=== PATIENT | male | born 1980 | race Caucasian/White ===

== ENCOUNTER → 2022-08-19 | Outpatient (CLI) | payer BC ==
--- NOTE | 2022-08-19 21:27 | MR ---
EXAMINATION TYPE: MR lumbar spine wo/w con DATE OF EXAM: 08/19/2022 7:54 PM COMPARISON: NONE HISTORY: Low back pain into left leg CONTRAST: The patient was injected with 9.5 mL intravenous Gadavist gadolinium contrast. Multiplanar, MultiSpin echo imaging of the lumbar spine was performed. L1-L2: Normal disc appearance without desiccation. No herniation, protrusion or disc bulging. No ca nal stenosis is present. Foramina are patent bilaterally. L2-L3: Normal disc appearance without desiccation. No herniation, protrusion or disc bulging. No ca nal stenosis is present. Foramina are patent bilaterally. L3-L4: Normal disc appearance without desiccation. No herniation, protrusion or disc bulging. No ca nal stenosis is present. Foramina are patent bilaterally. L4-L5: Laminectomy changes noted. Intervertebral body spacer place. Postoperative alignment is within normal limits. Superior and inferior artifact seen. No recurrent central stenosis. Foramina are ortega nt. L5-S1: Laminectomy changes noted. Intervertebral body spacer place. Postoperative alignment is within normal limits. Superior and inferior artifact seen. No recurrent central stenosis. Foramina are ortega nt. Lumbar segments are intact. No paraspinal masses are identified. Conus medullaris has a normal appe arance. No pathologic enhancement. IMPRESSION: 1. Postoperative changes L4-5 and L5-S1 without recurrent disease. Alignment is within normal limits. No pathologic enhancement seen.
== END | disposition home or self-care (01) ==
LOC: RADMRIMAIN 18:21
PROVIDERS: ATTEND Neurological Surgery
DX: M54.16 Radiculopathy, lumbar region (principal); Z98.890 Other specified postprocedural states
CPT/HCPCS: 72158; A9585

== ENCOUNTER 2024-07-27 17:44 | Inpatient (IN) | payer BC, OTHER ==
--- NOTE | 2024-07-27 19:46 | ED ---
Back Pain HPI - General Chief Complaint: Back Pain/Injury Stated Complaint: Back pain Time Seen by Provider: 07/27/24 17:50 Source: patient, EMS Limitations: no limitations - History of Present Illness Initial Comments: 44-year-old male presents to the emergency department with back pain. States that he fell off of a garbage truck yesterday and landed flat on his back. He was having pain in his low back and went into [facility]. CT was performed which was negative. He was discharged home with pain medications. States that he woke up this morning in a puddle. Patient had urinary incontinence. States that he had a bowel movement yesterday but has not had 1 today. He reports to significant pain in the left lower extremity with weakness and numbness. No fevers. No history of drug use. No other alleviating, precipitating or modifying factors - Related Data Home Medications Medication Instructions Recorded Confirmed HYDROcodone/APAP 5-325MG [[place] 1 tab PO Q4HR PRN 07/28/24 07/28/24 5-325] Ibuprofen [Motrin] 800 mg PO Q8H PRN 07/28/24 07/28/24 Previous Rx's Medication Instructions Recorded Lidocaine 5% Patch [Lidoderm 5% 1 patch TOPICAL DAILY 30 Days #30 07/31/24 Patch] patch methylPREDNISolone Dose Pack 4 mg PO DIRECTED #21 tab 07/31/24 [Medrol Dose Pack] Allergies Allergy/AdvReac Type Severity Reaction Status Date / Time Penicillins Allergy Anaphylaxis Verified 07/28/24 09:44 Review of Systems ROS Statement: Those systems with pertinent positive or pertinent negative responses have been documented in the HPI. ROS Other: All systems not noted in ROS Statement are negative. Past Medical History Past Medical History: No Reported History History of Any Multi-Drug Resistant Organisms: None Reported Past Surgical History: No Surgical Hx Reported, Back Surgery Smoking Status: Current every day smoker Past Alcohol Use History: Occasional Past Drug Use History: None Reported General Exam Limitations: no limitations General appearance: alert, in no apparent distress Head exam: Present: atraumatic, normocephalic, normal inspection Eye exam: Present: normal appearance, PERRL, EOMI. Absent: scleral icterus, conjunctival injection, periorbital swelling ENT exam: Present: normal exam, mucous membranes moist Neck exam: Present: normal inspection. Absent: tenderness, meningismus, lymphadenopathy Respiratory exam: Present: normal lung sounds bilaterally. Absent: respiratory distress, wheezes, rales, rhonchi, stridor Cardiovascular Exam: Present: regular rate, normal rhythm, normal heart sounds. Absent: systolic murmur, diastolic murmur, rubs, gallop, clicks GI/Abdominal exam: Present: soft, normal bowel sounds. Absent: distended, tenderness, guarding, rebound, rigid Rectal exam: Present: normal rectal tone Extremities exam: Present: normal capillary refill, other (Patient reports to weakness in the left lower extremity. He gives very poor effort. Also states that he cannot feel sensation over the medial, lateral or dorsal lower extremity.). Absent: tenderness, pedal edema, joint swelling, calf tenderness Back exam: Present: normal inspection Neurological exam: Present: alert, oriented X3, CN II-XII intact Psychiatric exam: Present: normal affect, normal mood Skin exam: Present: warm, dry, intact, normal color. Absent: rash Course Vital Signs 07/27/24 07/27/24 07/27/24 17:46 19:53 22:21 Temperature 98.3 F Pulse Rate 60 62 74 Respiratory 18 16 16 Rate Blood Pressure 138/76 137/84 115/76 O2 Sat by Pulse 99 97 97 Oximetry 07/28/24 07/28/24 07/28/24 05:29 11:03 16:13 Temperature Pulse Rate 66 77 70 Respiratory 16 16 18 Rate Blood Pressure 124/87 137/90 123/73 O2 Sat by Pulse 95 97 96 Oximetry 07/28/24 17:25 Temperature 97.6 F Pulse Rate 73 Respiratory 18 Rate Blood Pressure 129/74 O2 Sat by Pulse 97 Oximetry Medical Decision Making - Medical Decision Making Was pt. sent in by a medical professional or institution (, PA, CHRONOMETER TESTER, urgent care, hospital, or alf...) When possible be specific @ -No Did you speak to anyone other than the patient for history (EMS, parent, family, police, friend...)? What history was obtained from this source @ -No Did you review nursing and triage notes (agree or disagree)? Why? @ -I reviewed and agree with nursing and triage notes Were old charts reviewed (outside hosp., previous admission, EMS record, old EKG, old radiological studies, urgent care reports/EKG's, alf records)? Report findings @ -Reviewed the CT from [facility] which demonstrated no acute process Differential Diagnosis (chest pain, altered mental status, abdominal pain women, abdominal pain men, vaginal bleeding, weakness, fever, dyspnea, syncope, headache, dizziness, GI bleed, back pain, seizure, CVA, palpatations, mental health, musculoskeletal)? @ -Differential Back Pain: Strain, zoster, cauda equina syndrome, epidural abscess, vertebral osteomyelitis, discitis, fracture, subluxation, disc herniation, DJD, spinal stenosis, dissection, AAA, pancreatitis, peptic ulcer disease, pyelonephritis, kidney stone, this is not meant to be an all-inclusive list. EKG interpreted by me (3pts min.). @ -Not done X-rays interpreted by me (1pt min.). @ -None done MRI interpreted by me (1pt min.). @ -yes which does not demonstrate any significant spinal cord compression U/S interpreted by me (1pt. min.). @ -None done What testing was considered but not performed or refused? (CT, X-rays, U/S, labs)? Why? @ -None What meds were considered but not given or refused? Why? @ -None Did you discuss the management of the patient with other professionals (professionals i.e. , PA, CHRONOMETER TESTER, lab, RT, psych nurse, social service agency director, criminal defense lawyer, teacher, medical information officer, special education case manager)? Give summary @ -Spoke with Dr. Lane who recommends steroids and will consult on the patient. spoke with dr lan Was smoking cessation discussed for >3mins.? @ -No Was critical care preformed (if so, how long)? @ -No Were there social determinants of health that impacted care today? How? (Homelessness, low income, unemployed, alcoholism, drug addiction, transportation, low edu. Level, literacy, decrease access to med. care, [facility], rehab)? @ -No Was there de-escalation of care discussed even if they declined (Discuss DNR or withdrawal of care, Hospice)? DNR status @ -No What co-morbidities impacted this encounter? (DM, HTN, Smoking, COPD, CAD, Cancer, CVA, ARF, Chemo, Hep., AIDS, mental health diagnosis, sleep apnea, morbid obesity)? @ -None Was patient admitted / discharged? Hospital course, mention meds given and route, prescriptions, significant lab abnormalities, going to OR and other pertinent info. @ -Upon arrival patient seen and evaluated in bed 11. Thorough history physical exam was performed. IV access was established. Patient is sent for MRI which demonstrates no acute spinal cord compression. Discussed the case with Dr. Lane. He recommends high-dose steroids. Patient will be admitted to medicine with orthopedic consult Undiagnosed new problem with uncertain prognosis? @ -No Drug Therapy requiring intensive monitoring for toxicity (Heparin, Nitro, Insulin, Cardizem)? @ -No Were any procedures done? @ -No Diagnosis/symptom? @ -Acute fall, acute low back pain, left leg weakness and paresthesias, urinary continence Acute, or Chronic, or Acute on Chronic? @ -Acute Uncomplicated (without systemic symptoms) or Complicated (systemic symptoms)? @ -Plicated Side effects of treatment? @ -No Exacerbation, Progression, or Severe Exacerbation? @ -No Poses a threat to life or bodily function? How? (Chest pain, [place], NH, pneumonia, PE, COPD, DKA, ARF, appy, cholecystitis, CVA, Diverticulitis, Homicidal, Suicidal, threat to staff... and all critical care pts) @ -Yes as patient reports to subjective findings of cauda equina - Lab Data Result diagrams: 07/31/24 03:32 07/31/24 03:32 Disposition Clinical Impression: Back pain, Fall, Left leg weakness Disposition[facility] Condition: Stable Is patient prescribed a controlled substance at d/c from ED?: No Time of Disposition: 20:58 Decision to Admit Reason: Admit from EC Decision Date: 07/27/24 Decision Time: 20:58
--- NOTE | 2024-07-27 19:49 | MR ---
EXAMINATION TYPE: MR lumbar spine wo con DATE OF EXAM: 07/27/2024 7:31 PM COMPARISON: 08/19/2022. CLINICAL INDICATION: Male, 44 years old with history of fall with back pain, urinary incontinence; PH H, Lt leg numbness, urinary incontinence, fall injury TECHNIQUE: Multi planar, multi sequence imaging was performed utilizing: T1-weighted, T2-weighted, a nd turbo inversion recovery imaging of the lumbar spine. IV Contrast: mL (None, if empty) FINDINGS: Alignment: The lumbar vertebral bodies have preserved heights and alignment. Cord: The conus medullaris and the distal spinal cord appear unremarkable with regards to their signa l intensity and morphology. Bones/Discs: Mild degeneration changes throughout the spine with osteophyte formation and facet joint arthropathy. Intervertebral disc signal is maintained. No abnormal inversion recovery signal to sugg est bony edema. T12-L1: No evidence of significant spinal canal stenosis or neural foraminal stenosis. L1-L2: No evidence of significant spinal canal stenosis or neural foraminal stenosis. L2-L3: No evidence of significant spinal canal stenosis or neural foraminal stenosis. L3-L4: No evidence of significant spinal canal stenosis. Facet joint arthropathy mild bilateral neura l foraminal stenosis. L4-L5: Discectomy at this level. No evidence of significant spinal canal stenosis. Facet joint arthro evan mild bilateral neural foraminal stenosis. L5-S1: Discectomy at this level. No evidence of significant spinal canal stenosis. Facet joint arthro evan mild bilateral neural foraminal stenosis. No significant spinal canal or neural foraminal stenosis in the remainder of the visualized levels. Other findings: None. IMPRESSION: No definitive evidence of disc herniation or significant spinal canal stenosis. No significant change since 08/19/2024 [facility], , 07/27/2024 7:46 PM
[2024-07-27] MEDS ORDERED: NALOXONE 0.4 MG/ML 1 ML VIAL IV PRN ×2 (20:58→21:11)
[2024-07-27] MEDS: DEXAMETHASONE SOD PHOSPHATE 10 MG/ML 1 ML VIAL IVP STA (21:21)
[2024-07-27] MEDS: SODIUM CHLORIDE 0.9% 1,000 ML IV SCH (21:22)
[2024-07-27 21:24] LABS: Basophils # (A) 0.03 10*3/uL (0.00-0.10); Basophils % (A) 0.6 %; Eosinophils # (A) 0.12 10*3/uL (0.04-0.35); Eosinophils % (A) 2.2 %; HCT 43.1 % (39.6-50.0); HGB 15.5 g/dL (13.0-17.0); Lymphocytes # (A) 1.59 10*3/uL (0.90-5.00); Lymphocytes % (A) 29.4 %; MCH 30.3 pg (27.0-32.0); MCV 84.2 fL (80.0-97.0); Mean Platelet Volume 9.3 fL (9.5-12.2); Monocytes # (A) 0.46 10*3/uL (0.20-1.00); Monocytes % (A) 8.5 %; Neutrophils # (A) 3.18 10*3/uL (1.80-7.70); Neutrophils % (A) 58.9 %; Platelet Count 212 10*3/uL (140-440); RBC 5.12 10*6/uL (4.40-5.60); RDW 12.8 % (11.5-14.5)
--- NOTE | 2024-07-27 21:36 | P.HPIM ---
History of Present Illness H&P Date: 07/27/24 Chief Complaint: back pain This is a 44-year-old male patient with no significant past medical history who presented to the ER complaining of back pain. Patient reported that he fell off a garbage truck yesterday and he landed flat on his back. Patient reported that he was complaining of severe pain and he had to go to the hospital at [place]. CT scan was done and it was not remarkable. Patient was discharged with pain medication. However, this morning he woke up with a puddle of urine where he reported urine incontinence. He did had a normal bowel movement yesterday but none today. He reports significant pain and numbness to the left lower extremity. Case was discussed with Dr. Lane who recommended MRI which was done and it was not remarkable . Physical exam per ED physician was not remarkable as well and there were no red flags . Dr. Lane recommended dexamethasone 4 mg every 6 hours and will evaluate patient tomorrow. Patient admitted as an observation. Labs are not remarked Past medical history : None Past surgical history: None Social history : Daily tobacco use of 1 pack/day, occasional alcohol use and no illicit drug use Review of system : Positive for back pain General: nontoxic, no distress, appears at stated age Derm: warm, dry, intact Head: atraumatic, normocephalic, symmetric Eyes: EOMI, anicteric sclera Mouth: no lip lesion, mucus membranes moist Cardiovascular: S1 S2 reg, no murmur, rubs, or gallops Lungs: CTA bilateral, no rales, no accessory muscle use Abdominal: soft, non-tender to palpataion, no appreciable organomegaly Extremities: no gross muscle atrophy, no edema, no contractures Neuro: Alert, Oriented, CNII-XII grossly intact, Normal strength and sensation to the lower extremity . Rectal exam was not performed by me but was done by ED physician and was normal Psych: well appearing, appropriate affect Assessment and plan : - Status post mechanical fall with back pain and left leg numbness : Spine MRI was not remarkable Continue with IV dexamethasone was consulted and will evaluate patient tomorrow a.m. Pain management Fall precaution CODE STATUS is full code VTE prophylaxis on Lovenox subcu Will consult physical therapy Admitted under observation Time spent : 55 min Past Medical History Past Medical History: No Reported History History of Any Multi-Drug Resistant Organisms: None Reported Past Surgical History: No Surgical Hx Reported, Back Surgery Smoking Status: Current every day smoker Past Alcohol Use History: Occasional Past Drug Use History: None Reported Medications and Allergies Allergies Allergy/AdvReac Type Severity Reaction Status Date / Time Penicillins Allergy Anaphylaxis Verified 07/27/24 21:09 Physical Exam Vitals: Vital Signs Temp Pulse Resp BP Pulse Ox 07/27/24 19:53 62 16 137/84 97 07/27/24 17:46 98.3 F 60 18 138/76 99 Intake and Output 07/27/24 07/27/24 07/27/24 06:59 14:59 22:59 Other: Weight 106.594 kg
[2024-07-27 21:39] LABS: African American GFR (CKD) >90 (>60 ml/min/1.73 sqM); Anion Gap 8 mmol/L; Blood Urea Nitrogen 19 mg/dL (9-20); Calcium 8.9 mg/dL (8.4-10.2); Carbon Dioxide 26 mmol/L (22-30); Chloride 101 mmol/L (98-107); Glucose 94 mg/dL (74-99); Non-African American GFR(CKD) >90 (>60 ml/min/1.73 sqM); Potassium 3.5 mmol/L (3.5-5.1); Sodium 135 mmol/L (137-145)
[2024-07-27] MEDS: HYDROcodone/APAP 5-325MG 1 EACH TAB PO PRN (22:22)
[2024-07-27] MEDS: DEXAMETHASONE SOD PHOSPHATE 4 MG/ML 1 ML VIAL IVP SCH (23:31)
[2024-07-28] MEDS: ENOXAPARIN 40 MG/0.4 ML SYRINGE SQ SCH (08:34)
--- NOTE | 2024-07-28 12:47 | P.PN ---
Subjective Progress Note Date: 07/28/24 Hospital course: Patient is a 44-year-old male with a past medical history of nicotine dependence and recent fall resulting in severe lower back pain, left lower extremity weakness/paralysis, and urinary incontinence. 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 Patient reports initially was able to get back up and ambulate through the pain, he states he was seen at [facility] at time of injury and underwent a CT scan on his back which was negative. Patient reported this pain progressively worsened accompanied by the development of left lower extremity weakness and lastly urinary incontinence provoking him to return to the emergency department for further evaluation. Upon arrival to our facility, patient underwent evaluation in the emergency department. Vital signs upon arrival show blood pressure 138/76, heart rate 60, respiratory rate 18, temp 98.3 F, and SpO2 of 99% on room air. MRI Lumbar spine completed showing no definitive evidence of disc herniation or significant spinal cord stenosis stating no significant changes since MRI completed 08/19/2022. Patient was started on IV Decadron and admitted under services with consultation to orthospine surgery team. Physical exam: Patient seen and fully evaluated at the bedside. He reports having another episode of urinary incontinence this morning and continued left lower extremity weakness/paralysis. Sensation remains intact, but states diminished in left lower extremity. Patient reports pain remains to mid lower back and remains tender upon palpation. He denies having any involuntary loss of bowel. Vital signs reviewed and stable. General: Nontoxic, no distress and appears stated age. Derm: Skin warm and dry, normal coloration for ethnicity. Head: Atraumatic, normocephalic and symmetric. Eyes: EOM's intact, no lid lag, and anicteric sclera Mouth: no lip lesions, mucus membranes moist Cardiovascular: regular rate and rhythm with normal S1S2, no murmur, positive posterior tibial pulses bilaterally, and cap refill < 2 seconds. Lungs: Respirations even, regular, and unlabored on room air. Lungs CTA bilaterally, no rhonchi, no rales, no wheezing, and no accessory muscle usage. Abdominal: soft, nontender to palpation, no guarding, no appreciable orga nomegaly Ext: No gross muscle atrophy, no edema, no contractures Neuro: Speech clear, face symmetrical and CN II-XII grossly intact with no noted focal neuro deficits. Movement and sensation equal, strong, and intact in bilateral upper extremities. Sensation in bilateral lower extremities intact r eports diminished to left lower extremity, left lower extremity with significant weakness/near paralysis. Patient was able to perform only minimal plantarflexion with left foot, but unable to dorsiflex and no other movement in left lower extremity. Psych: Alert and oriented to person, place, time, and situation. Appropriate and pleasant affect. Assessment and Plan of Care: Acute lumbar back pain accompanied by left lower extremity weakness/paralysis and urinary incontinence Traumatic fall from garbage truck -MRI Lumbar spine completed showing no definitive evidence of disc herniation or significant spinal cord stenosis stating no significant changes since MRI completed 08/19/2022. -Continue IV Decadron 4 mg every 6 hours. -Orthospine surgery team following, discussed MRI results with orthospine surgeon and orthopedic PA. Will further evaluate and possibly place order for MRI thoracic spine pending their assessment findings. -Symptomatic care and pain management milligrams every 6 hours as needed for mild pain, [place] 5/325 mg tablets every 4 hours as needed for moderate pain, and morphine 4 mg IVP every 4 hours as needed for severe breakthrough pain. -Neurochecks every 4 hours. -Maintain fall precautions.. -Consult placed to physical therapy. Data and imaging reviewed: MRI Lumbar spine completed showing no definitive evidence of disc herniation or significant spinal cord stenosis stating no significant changes since MRI completed 08/19/2022. Vital signs reviewed. Blood pressure 124/87, heart rate 66, respiratory rate 16, and SpO2 of 95% on room air. CODE STATUS: Full code DVT prophylaxis: Lovenox Discussed with: Patient, RN, orthopedic surgeon, and orthopedic surgery PA Anticipated discharge date: Pending clinical course Anticipated discharge place: Home Patient was seen independently by Nurse Pracitioner. This document was prepared using [employer] dictation software. Please allow for errors in field auditor, while rare they do occur. Erick Fowler NP rendered care for this patient independently, reviewed the findings and plan as documented in the note above and agree with plan. I did not physically speak with or examine the patient on this date. Objective - Vital Signs Vital signs: Vital Signs Temp 98.3 F 07/27/24 17:46 Pulse 77 07/28/24 11:03 Resp 16 07/28/24 11:03 BP 137/90 07/28/24 11:03 Pulse Ox 97 07/28/24 11:03 FiO2 Intake & Output 07/27/24 07/28/24 07/28/24 18:59 06:59 18:59 Weight 106.594 kg - Labs CBC & Chem 7: 07/27/24 21:16 07/27/24 21:16 Labs: Abnormal Lab Results - Last 24 Hours (Table) 07/27/24 07/27/24 Range/Units 21:16 21:16 MPV 9.3 L (9.5-12.2) fL Sodium 135 L (137-145) mmol/L
[2024-07-28] MEDS: traMADol 50 MG TAB PO PRN (13:41)
--- NOTE | 2024-07-28 14:24 | P.CNOR ---
History of Present Illness - [facility] Consult date: 07/28/24 Consult reason: back pain (Left lower extremity paralysis/weakness, urinary incontinence) History of present illness: Patient is a 44-year-old male who presented to [facility] yesterday for evaluation of severe left lower extremity weakness, mid/low back pain and urinary incontinence. Apparently on 07/26/2024 he fell off a garbage truck landing on his back. Patient was able to struggle through most of the day, the following day he had developed significant weakness in his extremity, he also woke up and noticed he had urinated himself and not been able to tell that he did that. This prompted him to report to the hospital for further evaluation. An MRI of the lumbar spine was done upon arrival, there were no space-occupying lesions, there is no significant spinal cord compression noted. Patient does have history of a previous lumbar surgery that was done about 14 years ago by a neurosurgeon at [facility]. Patient evaluated at bedside, and family members present in the ER. Patient is in quite a bit of discomfort in the mid thoracic down through the lumbar spine, he admits to shooting pain that goes down the leg with movement of that left lower extremity that ranges up into his back. Patient notes significant numbness and tingling to that left lower extremity. He essentially has no motion in that extremity at this time. He denies any right lower extremity symptoms at this time. He denies any upper extremity symptoms at this time. He denies any headaches, fever or chills. He does admit to some genital numbness and perineal numbness. He denies any loss of bowel function. Review of Systems Constitutional: Reports as per [facility] Past Medical History Past Medical History: No Reported History History of Any Multi-Drug Resistant Organisms: None Reported Past Surgical History: No Surgical Hx Reported, Back Surgery Smoking Status: Current every day smoker Past Alcohol Use History: Occasional Past Drug Use History: None Reported Medications and Allergies Home Medications Medication Instructions Recorded Confirmed Type HYDROcodone/APAP 5-325MG [[place] 1 tab PO Q4HR PRN 07/28/24 07/28/24 History 5-325] Ibuprofen [Motrin] 800 mg PO Q8H PRN 07/28/24 07/28/24 History Allergies Allergy/AdvReac Type Severity Reaction Status Date / Time Penicillins Allergy Anaphylaxis Verified 07/28/24 09:44 Physical Examination Gen: AOx3, NAD VSS stable at this time Integument: No open lesions or sores are visualized throughout the cervical, thoracic or lumbar spine. There is well-healed incision in the lower lumbar spine from previous lumbar surgery Palpation: Tenderness to palpation noted in the paraspinal region of the mid to low thoracic along with lumbar spine ROM: Full range of motion all major muscle groups of the bilateral upper extremities, no focal deficits are appreciated Right lower extremity demonstrates adequate range of motion all major muscle groups Left lower extremity patient does not move it he states he tries any cannot move it at all Sensory Exam: Senory exam to light touch is intact C5-T1 Senosry exam to light touch is intact L2-S1, sensory exam to light touch demonstrates deficits throughout the left lower extremity Motor: 5/5 strength appreciated in bilateral upper extremities with shoulder elevation, shoulder abduction, elbow extension, elbow flexion, wrist extension, wrist flexion, attorney 4/5 strength appreciated in the right lower extremity with hip flexion, knee extension, knee flexion, plantarflexion, dorsiflexion, EHL, FHL Reflexes: Negative Jose's bilaterally Negative clonus bilaterally Special Test: Negative straight leg raise right lower extremity Positive straight leg raise left lower extremity Results - Labs Labs: Abnormal Lab Results - Last 24 Hours (Table) 07/27/24 07/27/24 Range/Units 21:16 21:16 MPV 9.3 L (9.5-12.2) fL Sodium 135 L (137-145) mmol/L H & H 07/27/24 Range/Units 21:16 Hgb 15.5 (13.0-17.0) g/dL Hct 43.1 (39.6-50.0) % Result Diagrams: 07/27/24 21:16 07/27/24 21:16 Assessment and Plan Assessment: Mid thoracic/low back pain Left lower extremity paralysis/paresthesias/weakness Urinary incontinence History of previous lumbar surgery Status post fall from truck Plan: I was able to discuss the case, this included physical exam findings and current imaging studies with my attending surgeon. MRI of the lumbar spine demonstrated no space-occupying lesions or significant areas of spinal stenosis in the lumbar region Stat MRI of the thoracic spine without contrast has been ordered for further evaluation Pain control, continue current medications DVT prophylaxis per primary medical service Continue IV Decadron Further recommendations to follow Time with Patient: Less than 30
[2024-07-28] MEDS ORDERED: ACETAMINOPHEN TAB 325 MG TAB PO PRN (16:02)
--- NOTE | 2024-07-28 19:29 | MR ---
EXAMINATION TYPE: MR thoracic spine wo con DATE OF EXAM: 07/28/2024 6:28 PM COMPARISON: None. CLINICAL INDICATION: Male, 44 years old with history of urinary incontinence, left leg paralysis, uri nary incontinence, left leg paralysis. TECHNIQUE: Multiplanar, multiecho imaging on a 3.0 Fabiana magnet is performed through the thoracic spi ne. IV Contrast: mL (None, if empty) FINDINGS: Spinal cord maintains normal signal through its visualized course. Vertebral body alignment is normal. Vertebral body heights are preserved. Disc heights are preserved. Disc hydration levels are preserved. T2-3: Mild right paracentral disc bulge has mild anterior thecal sac compression. No cord contact 7. No spinal canal stenosis. T5-6: Moderate left paracentral disc bulge has anterior thecal sac contact. Cord contact may be prese nt. Mild cord flattening may be present. No AP spinal canal stenosis. T6-7: Moderate disc bulge and moderate anterior thecal sac compression and cord contact. No spinal ca nal stenosis. T7-8: Left paracentral to left lateral disc bulge is present with moderate anterior thecal sac compre ssion. Cord contact may be present. No spinal canal stenosis. T8-9: There is a left paracentral disc bulge moderate anterior lateral thecal sac compression. Some c ord contact appears to be present. No AP spinal canal stenosis evident. Neural foramen are patent. IMPRESSION: 1. Left paracentral to left lateral anterior thecal sac compression at T5-6 through T8-9 from disc bu lging and/or osteophyte formation. Some cord contact is present at these levels without spinal canal stenosis. Mild cord flattening may be present at T5-6. 2. Mild right paracentral disc bulge has mild anterior thecal sac compression at T2-3. [facility], , 07/28/2024 7:26 PM
[2024-07-28] MEDS: MORPHINE SULFATE 4 MG/ML SYRINGE IV PRN (21:54)
--- NOTE | 2024-07-29 12:28 | P.PN ---
Subjective Progress Note Date: 07/29/24 Principal diagnosis: Left lower extremity weakness/paralysis, urinary incontinence Patient is evaluated today at bedside, he had multiple family members present. Patient has undergone both the thoracic and lumbar MRI that showed no significant central spinal canal stenosis. There were some disc herniations noted in the thoracic area between T6-T9. Patient also underwent a b rain/cervical MRI today, the report was not available at this time. The images as they are. Also demonstrated no acute central canal stenosis. Neurology did add the MRI of the brain, awaiting further input. Patient continues to have no function of his left lower extremity and his head 2 further episodes of urinary incontinence. Discussed with the patient today at bedside of placing a urinary catheter. Denies any headaches, lightheadedness, chest pain, shortness of breath, left upper extremity or right lower extremity symptoms. Objective - Vital Signs Vital signs: Vital Signs Temp 97.7 F 07/29/24 07:23 Pulse 57 L 07/29/24 07:23 Resp 16 07/29/24 07:23 BP 121/67 07/29/24 07:23 Pulse Ox 97 07/29/24 07:23 FiO2 Intake & Output 07/28/24 07/29/24 07/29/24 18:59 06:59 18:59 Weight 106.594 kg Other: Voiding Method Incontinent # Voids 5 1 - Exam Gen: AOx3, NAD VSS stable at this time Integument: No open lesions or sores are visualized throughout the cervical, thoracic or lumbar spine. There is well-healed incision in the lower lumbar spine from previous lumbar surgery Palpation: Tenderness to palpation noted in the paraspinal region of the mid to low thoracic along with lumbar spine ROM: Full range of motion all major muscle groups of the bilateral upper extremities, no focal deficits are appreciated Right lower extremity demonstrates adequate range of motion all major muscle groups Left lower extremity patient does not move it he states he tries any cannot move it at all Sensory Exam: Senory exam to light touch is intact C5-T1 Senosry exam to light touch is intact L2-S1, sensory exam to light touch demonstrates deficits throughout the left lower extremity Motor: 5/5 strength appreciated in bilateral upper extremities with shoulder elevation, shoulder abduction, elbow extension, elbow flexion, wrist extension, wrist flexion, software engineering specialist 4/5 strength appreciated in the right lower extremity with hip flexion, knee extension, knee flexion, plantarflexion, dorsiflexion, EHL, FHL Reflexes: Negative Jose's bilaterally Negative clonus bilaterally Special Test: Negative straight leg raise right lower extremity Positive straight leg raise left lower extremity - Labs CBC & Chem 7: 07/27/24 21:16 07/27/24 21:16 Assessment and Plan Assessment: Mid thoracic/low back pain Left lower extremity paralysis/paresthesias/weakness Urinary incontinence History of previous lumbar surgery Status post fall from truck Plan: Await brain/cervical MRI reports Will review MRIs again with my attending surgeon 30 mg IV Decadron stat, followed by an increase in the 4 mg every 4 hours Urinary catheter placement Pain control, continue current medications DVT prophylaxis per primary medical service Other medical specialty recommendations appreciated Further recommendations to follow Time with Patient: Less than 30
--- NOTE | 2024-07-29 13:26 | MR ---
EXAMINATION TYPE: MR brain/cspine wo/w DATE OF EXAM: 07/29/2024 12:06 PM COMPARISON: None. CLINICAL INDICATION: Male, 44 years old with history of LLE paralysis, invol loss of bladder, back pa in, LLE parasthesis, urinary incontinence TECHNIQUE: Multiplanar, multiecho imaging on a 3.0 Fabiana magnet is performed through the brain. Stud y is performed within 24 hours of arrival to the hospital.Multiplanar, multiecho imaging on a 3.0 Jule[place] la magnet is performed through the brain. IV Contrast: 10.5 mL Gadobutrol (None, if empty) FINDINGS: The craniovertebral junction is normal. The pituitary is normal. Optic chiasm as visualized appears normal Diffusion-weighted imaging is performed. No abnormal hyperintensity is present to suggest an acute i ntracranial infarct or acute ischemic change. There are scattered punctate areas of hyperintensity on T2 and Inversion Recovery weighted sequences which are non-specific but can be related to microvascular ischemic changes. Ventricles and sulci are appropriate for the patient age. IMPRESSION: 1. No acute intracranial process. Follow-up be performed as clinically indicated. EXAMINATION TYPE: MR brain/cspine wo/w DATE OF EXAM: 07/29/2024 12:06 PM COMPARISON: None. CLINICAL INDICATION: Male, 44 years old with history of LLE paralysis, invol loss of bladder, back pa in, LLE parasthesis, urinary incontinence TECHNIQUE: Multiplanar multiecho imaging on a 3.0 Fabiana magnet is performed through the cervical spin e. IV Contrast: 10.5 mL Gadobutrol (None, if empty) FINDINGS: The craniovertebral junction is normal. Vertebral body alignment is normal. C7-T1: No focal disc herniation or significant disc bulge is evident. No spinal canal stenosis or n eural foraminal stenosis is present. C6-7: No focal disc herniation or significant disc bulge is evident. No spinal canal stenosis or pattie ral foraminal stenosis is present. C5-6: No focal disc herniation or significant disc bulge is evident. No spinal canal stenosis or pattie ral foraminal stenosis is present. C4-5: No focal disc herniation or significant disc bulge is evident. No spinal canal stenosis or pattie ral foraminal stenosis is present. C3-4: There is a moderate-sized central protrusion. Cord contact appears to be present. No cord defor mity is evident. C2-3: No focal disc herniation or significant disc bulge is evident. No spinal canal stenosis or pattie ral foraminal stenosis is present. Cord signal appears normal. Vertebral body heights are preserved. Disc heights are preserved. Disc hy dration appears normal. IMPRESSION: 1. Small central disc protrusion C3-4 has moderate anterior thecal sac compression and mass and cord contact without cord deformity. [facility], , 07/29/2024 1:24 PM
--- NOTE | 2024-07-29 13:27 | P.PN ---
Subjective Progress Note Date: 07/29/24 Hospital course: Patient is a 44-year-old male with a past medical history of nicotine dependence and recent fall resulting in severe lower back pain, left lower extremity weakness/paralysis, and urinary incontinence. 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 Patient reports initially was able to get back up and ambulate through the pain, he states he was seen at [facility] at time of injury and underwent a CT scan on his back which was negative. Patient reported this pain progressively worsened accompanied by the development of left lower extremity weakness and lastly urinary incontinence provoking him to return to the emergency department for further evaluation. Upon arrival to our facility, patient underwent evaluation in the emergency department. Vital signs upon arrival show blood pressure 138/76, heart rate 60, respiratory rate 18, temp 98.3 F, and SpO2 of 99% on room air. MRI Lumbar spine completed showing no definitive evidence of disc herniation or significant spinal cord stenosis stating no significant changes since MRI completed 08/19/2022. Patient was started on IV Decadron and admitted under services with consultation to orthospine surgery team. MRI thoracic spine completed showing left paracentral to left lateral anterior thecal sac compression at T5-T6 through T8-T9 with disc bulging and/or osteophyte formation, some cord contact is present at these levels without spinal canal stenosis and mild cord flat tening may be present at C5-6 with mild right paracentral disc bulge that has mild anterior thecal sac compression at T2-T3. Physical exam: Patient seen and fully evaluated at the bedside. he was resting in bed visiting with family members at bedside. Patient and RN both report continued urinary incontinence and a Barker catheter was placed this morning. Patient currently reporting full numbness of left lower extremity along with continued total weakness/paralysis. Patient reports pain remains throughout lower thoracic/lumbar region of back. Reports significantly worsening with straight l eg raise. Vital signs reviewed and stable. General: Nontoxic, no distress and appears stated age. Derm: Skin warm and dry, normal coloration for ethnicity. Head: Atraumatic, normocephalic and symmetric. Eyes: EOM's intact, no lid lag, and anicteric sclera Mouth: no lip lesions, mucus membranes moist Cardiovascular: regular rate and rhythm with normal S1S2, no murmur, positive posterior tibial pulses bilaterally, and cap refill < 2 seconds. Lungs: Respirations even, regular, and unlabored on room air. Lungs CTA bilaterally, no rhonchi, no rales, no wheezing, and no accessory muscle usage. Abdominal: soft, nontender to palpation, no guarding, no appreciable organomegaly Ext: No gross muscle atrophy, no edema, no contractures Neuro: Speech clear, face symmetrical and CN II-XII grossly intact with no noted focal neuro deficits. Movement and sensation equal, strong, and intact in bi lateral upper extremities and right lower extremity. Patient reports total numbness throughout left lower extremity and unable to move at this time Psych: Alert and oriented to person, place, time, and situation. Appropriate and pleasant affect. Assessment and Plan of Care: Acute lumbar back pain accompanied by left lower extremity weakness/paralysis and urinary incontinence Traumatic fall from garbage truck -MRI Lumbar spine completed showing no definitive evidence of disc herniation or significant spinal cord stenosis stating no significant changes since MRI completed 08/19/2022. -MRI thoracic spine completed showing left paracentral to left lateral anterior thecal sac compression at T5-T6 through T8-T9 with disc bulging and/or osteophyte formation, some cord contact is present at these levels without spinal canal stenosis and mild cord flattening may be present at C5-6 with mild right paracentral disc bulge that has mild anterior thecal sac compression at T2-T3. -Orthospine surgery team following. Dr. Lane requesting neurology to [place] and the recommendations. Discussed MRI findings and plan of care in great detail with orthospine surgeon and orthopedic PA., Stating they are ordering increase dose of Decadron and giving 30 mg IVP x 1 dose followed by 4 mg IVP every 4 hours. -Continue IV Decadron 4 mg every 4 hours. -Consult placed with neurologist, discussed plan of care in detail with Dr. Gastelum requesting stat MRI brain and cervical spine and orders placed at this time. -Symptomatic care and pain management milligrams every 6 hours as needed for mild pain, [place] 5/325 mg tablets every 4 hours as needed for moderate pain, and morphine 4 mg IVP every 4 hours as needed for severe breakthrough pain. -Neurochecks every 4 hours. -Maintain fall precautions.. -Consult placed to physical therapy. Data and imaging reviewed: MRI thoracic spine completed showing left paracentral to left lateral anterior thecal sac compression at T5-T6 through T8-T9 with disc bulging and/or osteophyte formation, some cord contact is present at these levels without spinal canal stenosis and mild cord flattening may be present at C5-6 with mild right paracentral disc bulge that has mild anterior thecal sac compression at T2-T3. -Morning labs reviewed. CBC unremarkable. BMP also normal findings. Blood glucose slightly elevated at 157. Calcium 8.9. Vital signs reviewed. Blood pressure 121/67, heart rate 57, respiratory rate 16, temp 97.7 F, and SpO2 of 97% on room air. CODE STATUS: Full code DVT prophylaxis: Lovenox Discussed with: Patient, patient's family members at bedside, RN, orthopedic surgeon, orthopedic surgery PA, and neurologist Anticipated discharge date: Pending clinical course Anticipated discharge place: Home Patient was seen independently by Nurse Pracitioner. This document was prepared using [employer] dictation software. Please allow for errors in organ pipe voicer, while rare they do occur. Erick Fowler NP rendered care for this patient independently, reviewed the findings and plan as documented in the note above and agree with plan. I did not physically speak with or examine the patient on this date. Objective - Vital Signs Vital signs: Vital Signs Temp 97.7 F 07/29/24 07:23 Pulse 57 L 07/29/24 07:23 Resp 16 07/29/24 07:23 BP 121/67 07/29/24 07:23 Pulse Ox 97 07/29/24 07:23 FiO2 Intake & Output 07/28/24 07/29/24 07/29/24 18:59 06:59 18:59 Weight 106.594 kg Other: Voiding Method Incontinent # Voids 5 - Labs CBC & Chem 7: 07/29/24 13:14 07/29/24 13:14
[2024-07-29 13:33] LABS: HCT 45.5 % (39.6-50.0); HGB 15.9 g/dL (13.0-17.0); MCH 29.9 pg (27.0-32.0); MCHC 34.9 g/dL (32.0-37.0); MCV 85.7 fL (80.0-97.0); Mean Platelet Volume 9.4 fL (9.5-12.2); Platelet Count 236 10*3/uL (140-440); RBC 5.31 10*6/uL (4.40-5.60); RDW 12.9 % (11.5-14.5); WBC 9.29 10*3/uL (4.50-10.00)
[2024-07-29 13:58] LABS: African American GFR (CKD) >90 (>60 ml/min/1.73 sqM); Anion Gap 11 mmol/L; Blood Urea Nitrogen 13 mg/dL (9-20); Calcium 8.9 mg/dL (8.4-10.2); Carbon Dioxide 22 mmol/L (22-30); Chloride 104 mmol/L (98-107); Glucose 157 mg/dL (74-99); Non-African American GFR(CKD) >90 (>60 ml/min/1.73 sqM); Sodium 137 mmol/L (137-145)
[2024-07-29] MEDS: DEXAMETHASONE SOD PHOSPHATE 10 MG/ML 1 ML VIAL IVP STA (14:07)
[2024-07-29] MEDS: DEXAMETHASONE SOD PHOSPHATE 4 MG/ML 1 ML VIAL IVP SCH (16:16)
--- NOTE | 2024-07-29 16:30 | P.CNNES ---
History of Present Illness Consult date: 07/29/24 Requesting physician: Pablo Saravia Reason for Consult: numbness in legs History of Present Illness: This is a 44-year-old gentleman who presents to the emergency department because of significant left lower extremity weakness numbness. Patient is accompanied by his parents, daughter and [id number] were at bedside. 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 He states that after the incident he was dragging his left leg but was able to continue with the route but was dragging the whole time and was pushing himself. He also had episode of nausea and vomiting but was shaking it off. He got home and as a result because of his symptoms he was taken to outside hospital in which they did CTs of his back which was negative and they discharged him with pain medication. He was discharged home. But then when he got home he felt even more weaker and per the daughter he had another episode of vomiting and as a result EMS was called and he was brought to our facility for further workup. Patient denies any weakness in the upper extremities or any numbness in the upper. Denies any visual disturbance, any speech difficulty as a result of this incident. He feels he is having significant pain from the head down and significant weakness in the left lower extremity which he cannot walk any further or have any movement in the left lower extremity. He feels he is having pain from the entire left side including the left neck left upper and lower extremity. He also feels he is having left lower back pain radiating to the posterior region. He had chronic lumbar surgery in the past. According to the primary team nurse practitioner he was complaining of dribbling of the urine and as result he has a Barker catheter. Patient had MRI of the thoracic and lumbar and orthopedic surgery does not feel that MRI of the thoracic and lumbar explains his symptoms. He is on IV steroids. Patient could not tell me when his last bowel movement was. Some of the work-up during this hospital visit consisted of: MRI of the thoracic spine is reported as left paracentral to the left lateral anterior thecal sac compression at the T5-T6 to T8-T9 from disc bulging anterior osteophyte formation. Some cord contact is present at the level without spinal canal stenosis. Mild cord flattening may be present at C5-6. Right paracentral disc bulge has mild anterior thecal sac compression at T2-T3. MRI lumbar is reported as no definitive evidence of disc herniation or significant spinal canal stenosis. No significant change since 08/19/2024. MRI of the brain and cervical spine is for the MRI brain is reported as no acute intracranial process. MRI cervical spine is small central disc protrusion C3 see for has moderate anterior thecal sac compression and mass and cord contact without cord deformity. Review of Systems As per HPI. Past Medical History Past Medical History: No Reported History History of Any Multi-Drug Resistant Organisms: None Reported Past Surgical History: No Surgical Hx Reported, Back Surgery Smoking Status: Current every day smoker Past Alcohol Use History: Occasional Past Drug Use History: None Reported Medications and Allergies Home Medications Medication Instructions Recorded Confirmed Type HYDROcodone/APAP 5-325MG [[place] 1 tab PO Q4HR PRN 07/28/24 07/28/24 History 5-325] Ibuprofen [Motrin] 800 mg PO Q8H PRN 07/28/24 07/28/24 History Allergies Allergy/AdvReac Type Severity Reaction Status Date / Time Penicillins Allergy Anaphylaxis Verified 07/28/24 09:44 Physical Examination - Vital Signs Vital Signs: Vital Signs Temp Pulse Pulse Resp BP BP Pulse Ox 07/29/24 13:54 97.6 F 78 16 147/71 97 07/29/24 07:23 97.7 F 57 L 16 121/67 97 07/29/24 01:44 97.5 F L 65 15 126/64 97 07/28/24 19:09 97.7 F 66 17 136/70 97 07/28/24 17:25 97.6 F 73 18 129/74 97 07/28/24 16:13 70 18 123/73 96 Intake and Output 07/29/24 07/29/24 07/29/24 06:59 14:59 22:59 Intake Total 240 Balance 240 Intake: Oral 240 Other: # Voids 5 1 GENERAL: The patient is lying in bed and is not in acute distress. NEUROLOGICAL: Higher mental function: The patient is awake, alert, oriented to self, place and time. Patient is following commands. No aphasia and no neglect. Cranial nerves: The pupils are round, equal and reactive to light and accommodation. Visual baird are full to confrontation throughout. Extraocular movement is intact no nystagmus is noted. Facial sensation is normal to touch throughout. The facial strength is normal throughout. Hearing is moderately to severely decreased bilaterally to hand rub (chronic). Tongue is midline and moved [id number] without any difficulty. No dysarthria is noted. Shoulder shrug is normal bilaterally. Motor: The strength is 5 over 5 throughout upper and right lower extremity. Left lower extremity while supine had no movement but patient has positive Mandujano sign. Patient was adamant on being stood up to show me how he completed his job and so he was assisted by me and he was able to bear weight on the left lower extremity and was dragging his leg. When he was placed back in bed he was sitting and was able to move proximal left lower extremity back to bed. Normal tone and bulk. Cerebellum: Normal finger to nose bilaterally. Sensation: Decreased from T2 region to touch. Reflexes (right/left): Biceps 2+ bilaterally; triceps 2+ bilaterally; brachioradialis 3+ bilaterally; patellar 3+ bilaterally; ankles 2+ bilaterally. Plantars are mute bilaterally. Has normal rectal tone Results - Laboratory Findings CBC and BMP: 07/29/24 13:14 07/29/24 13:14 Abnormal Lab Findings: Abnormal Labs 07/27/24 07/27/24 07/29/24 21:16 21:16 13:14 MPV 9.3 L 9.4 L Sodium 135 L Glucose 07/29/24 13:14 MPV Sodium Glucose 157 H Assessment and Plan Assessment: This is a 44-year-old gentleman who presents emergency department because he had a fall episode while at work and he landed on his back and ever since he is unable to move the left lower extremity and feels he is numb from hips down and states she is having urinary incontinence. She had MRI of thoracic and lumbar and orthopedic surgery team does not feel that explains his symptoms. Also MRI of the brain and cervical spine is unremarkable for any acute process or severe stenosis or cervical myopathy that would explain his symptoms. Acute severe weakness of the left hemiplegia with numbness seems from the T2 region and below. Rule out any function component since on examination while supine he had no movement on the left lower extremity but was able to bear weight standing up and when sat back in bed, he was able to move proximal left hip inward moving his leg back in bed. He had normal rectal stone. This does not seems classical severe lumbar stenosis, myelopathy, cauda equina since exam is inconsistent and has good reflex. History of lower back surgery Plan: Orthopedic surgery team is on board. Patient is on Decadron PT consulted Will discuss with the orthopedic surgery team as well as primary team Thank you for the consultation. Time with Patient: Greater than 30
--- NOTE | 2024-07-30 11:55 | P.PN ---
Subjective Progress Note Date: 07/30/24 Principal diagnosis: Left lower extremity weakness/paralysis, urinary incontinence Patient is evaluated today at bedside, he is resting in his hospital bed. Patient feels that the low back pain is improved. We did give him the 30 mg of IV Decadron yesterday and change the Decadron to every 4 hours. Neurology also evaluated the patient at bedside yesterday. He was able to demonstrate walking with the neurologist yesterday and activating the quadriceps muscle. He continues to have no symptoms involving the bilateral upper extremities and right lower extremity at this time. Urinary catheter was placed yesterday. Denies any headaches, lightheadedness, chest pain, shortness of breath, left upper extremity or right lower extremity symptoms. Objective - Vital Signs Vital signs: Vital Signs Temp 97.7 F 07/30/24 07:05 Pulse 59 L 07/30/24 07:05 Resp 18 07/30/24 07:05 BP 127/75 07/30/24 07:05 Pulse Ox 95 07/30/24 07:05 FiO2 Intake & Output 07/29/24 07/30/24 07/30/24 18:59 06:59 18:59 Intake Total 1880 240 Output Total 850 1810 Balance 1030 -1810 240 Intake: Oral 1880 240 Output: Urine 850 1810 Other: Voiding Method Indwelling Catheter # Voids 1 - Exam Gen: AOx3, NAD VSS stable at this time Integument: No open lesions or sores are visualized throughout the cervical, thoracic or lumbar spine. There is well-healed incision in the lower lumbar spine from previous lumbar surgery Palpation: Tenderness to palpation noted in the paraspinal region of the mid to low thoracic along with lumbar spine ROM: Full range of motion all major muscle groups of the bilateral upper extremities, no focal deficits are appreciated Right lower extremity demonstrates adequate range of motion all major muscle groups Left lower extremity patient does not move it he states he tries any cannot move it at all Sensory Exam: Senory exam to light touch is intact C5-T1 Senosry exam to light touch is intact L2-S1, sensory exam to light touch demonstrates deficits throughout the left lower extremity Motor: 5/5 strength appreciated in bilateral upper extremities with shoulder elevation, shoulder abduction, elbow extension, elbow flexion, wrist extension, wrist flexion, butter liquefier 4/5 strength appreciated in the right lower extremity with hip flexion, knee extension, knee flexion, plantarflexion, dorsiflexion, EHL, FHL With the left lower extremity patient continues to demonstrate no movement with plantarflexion, dorsiflexion, EHL, FHL, knee extension and knee flexion. Well straight leg raising the left lower extremity he is able to contract the quad and hold the leg up for short period of time Reflexes: Negative Jose's bilaterally Negative clonus bilaterally Special Test: Negative straight leg raise right lower extremity Positive straight leg raise left lower extremity - Labs CBC & Chem 7: 07/29/24 13:14 07/29/24 13:14 Labs: Abnormal Lab Results - Last 24 Hours (Table) 07/29/24 07/29/24 Range/Units 13:14 13:14 MPV 9.4 L (9.5-12.2) fL Glucose 157 H (74-99) mg/dL Assessment and Plan Assessment: Mid thoracic/low back pain Left lower extremity paralysis/paresthesias/weakness Multilevel thoracic mild disc herniations Previous laminectomy/discectomy L5-S1 Urinary incontinence Status post fall from truck Plan: I was able to review all MRI reports and imaging studies again with my attending surgeon. There is no significant stenosis whether neuroforaminal or central that suggest his current symptoms. Patient was able to demonstrate his ability to weight-bear on the left lower extremity with the neurologist yesterday and kind of dragging that leg, he was also able to reproduce more of a quad activation during my exam today Plan to remove Barker on 07/31/2024 for bladder trial Will adjust IV steroids, start tapering down Pain control, continue current medications DVT prophylaxis per primary medical service Other medical specialty recommendations appreciated Will continue to follow during hospital stay Time with Patient: Less than 30
[2024-07-30] MEDS: DEXAMETHASONE SOD PHOSPHATE 4 MG/ML 1 ML VIAL IVP SCH (12:18)
--- NOTE | 2024-07-30 13:58 | P.PN ---
Subjective Progress Note Date: 07/30/24 Hospital course: Patient is a 44-year-old male with a past medical history of nicotine dependence and recent fall resulting in severe lower back pain, left lower extremity weakness/paralysis, and urinary incontinence. 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 Patient reports initially was able to get back up and ambulate through the pain, he states he was seen at [facility] at time of injury and underwent a CT scan on his back which was negative. Patient reported this pain progressively worsened accompanied by the development of left lower extremity weakness and lastly urinary incontinence provoking him to return to the emergency department for further evaluation. Upon arrival to our facility, patient underwent evaluation in the emergency department. Vital signs upon arrival show blood pressure 138/76, heart rate 60, respiratory rate 18, temp 98.3 F, and SpO2 of 99% on room air. MRI Lumbar spine completed showing no definitive evidence of disc herniation or significant spinal cord stenosis stating no significant changes since MRI completed 08/19/2022. Patient was started on IV Decadron and admitted under services with consultation to orthospine surgery team. MRI thoracic spine completed showing left paracentral to left lateral anterior thecal sac compression at T5-T6 through T8-T9 with disc bulging and/or osteophyte formation, some cord contact is present at these levels without spinal canal stenosis and mild cord flat tening may be present at C5-6 with mild right paracentral disc bulge that has mild anterior thecal sac compression at T2-T3. Physical exam: Patient seen and fully evaluated at the bedside. He was resting in bed this morning. Reports that his back pain has significantly improved since increased dose of steroids, but that he continues to have complete numbness and weakness of LLE. Barker catheter was placed per orthospine tean yesterday, patient denies having any new complaints or concerns at this time Vital signs reviewed and stable. General: Nontoxic, no distress and appears stated age. Derm: Skin warm and dry, normal coloration for ethnicity. Head: Atraumatic, normocephalic and symmetric. Eyes: EOM's intact, no lid lag, and anicteric sclera Mouth: no lip lesions, mucus membranes moist Cardiovascular: regular rate and rhythm with normal S1S2, no murmur, positive posterior tibial pulses bilaterally, and cap refill < 2 seconds. Lungs: Respirations even, regular, and unlabored on room air. Lungs CTA bilaterally, no rhonchi, no rales, no wheezing, and no accessory muscle usage. Abdominal: soft, nontender to palpation, no guarding, no appreciable organomegaly Ext: No gross muscle atrophy, no edema, no contractures Neuro: Speech clear, face symmetrical and CN II-XII grossly intact with no noted focal neuro deficits. Movement and sensation equal, strong, and intact in bilat eral upper extremities and right lower extremity. Patient reports total numbness throughout left lower extremity and unable to move at this time Psych: Alert and oriented to person, place, time, and situation. Appropriate and pleasant affect. Assessment and Plan of Care: Acute lumbar back pain accompanied by left lower extremity weakness/paralysis and urinary incontinence Multilevel thoracic disc herniations, T5-T6 through T8-T9 C5-C6 right paracentral disc bulge that has mild anterior thecal sac compression at T2-T3 Traumatic fall from garbage truck -MRI Lumbar spine completed showing no definitive evidence of disc herniation or significant spinal cord stenosis stating no significant changes since MRI completed 08/19/2022. -MRI thoracic spine completed showing left paracentral to left lateral anterior thecal sac compression at T5-T6 through T8-T9 with disc bulging and/or osteophyte formation, some cord contact is present at these levels without spinal canal stenosis and mild cord flattening may be present at C5-6 with mild right paracentral disc bulge that has mild anterior thecal sac compression at T2-T3. -Orthospine surgery team following. Discussed plan of care with orthopedic surgery PA recommending continuation of Decadron 4 mg IVP every 4 hours. -Neurology following, discussed plan of care in detail with Dr. Gastelum -Continue IV Decadron 4 mg every 4 hours. -Symptomatic care and pain management milligrams every 6 hours as needed for mild pain, [place] 5/325 mg tablets every 4 hours as needed for moderate pain, and morphine 4 mg IVP every 4 hours as needed for severe breakthrough pain. -Neurochecks every 4 hours. -Maintain fall precautions.. -Consult placed to physical therapy. Data and imaging reviewed: Morning labs reviewed. CBC unremarkable. BMP also normal findings. Blood glucose slightly elevated at 157. Calcium 8.9. Vital signs reviewed. Blood pressure 127/75, heart rate 59, respiratory rate 18, temp 97.7 F, and SpO2 of 95% on room CODE STATUS: Full code DVT prophylaxis: Lovenox Discussed with: Patient, RN, orthopedic surgery PA, and neurologist Anticipated discharge date: Pending clinical course Anticipated discharge place: Home Patient was seen independently by Nurse Pracitioner. This document was prepared using [employer] dictation software. Please allow for errors in payroll machine operator, while rare they do occur. Erick Fowler NP rendered care for this patient independently, reviewed the findings and plan as documented in the note above and agree with plan. I did not physically speak with or examine the patient on this date. Objective - Vital Signs Vital signs: Vital Signs Temp 97.7 F 07/30/24 07:05 Pulse 59 L 07/30/24 07:05 Resp 18 07/30/24 07:05 BP 127/75 07/30/24 07:05 Pulse Ox 95 07/30/24 07:05 FiO2 Intake & Output 07/29/24 07/30/24 07/30/24 18:59 06:59 18:59 Intake Total 1880 240 Output Total 850 1810 Balance 1030 -1810 240 Intake: Oral 1880 240 Output: Urine 850 1810 Other: Voiding Method Indwelling Catheter # Voids 1 - Labs CBC & Chem 7: 07/29/24 13:14 07/29/24 13:14 Labs: Abnormal Lab Results - Last 24 Hours (Table) 07/29/24 07/29/24 Range/Units 13:14 13:14 MPV 9.4 L (9.5-12.2) fL Glucose 157 H (74-99) mg/dL
[2024-07-31 08:01] LABS: HCT 45.3 % (39.6-50.0); MCH 29.1 pg (27.0-32.0); MCHC 33.1 g/dL (32.0-37.0); Mean Platelet Volume 10.4 FL (9.5-12.2); NRBC Per 100 WBC 0 X 10*3/uL (0.00-0.01); Platelet Count 259 X 10*3/uL (140-440); RBC 5.15 X 10*6/uL (4.40-5.60); WBC 10.29 X 10*3/uL (4.50-10.00)
[2024-07-31 08:16] LABS: ALT 17 U/L (10-49); AST 12 U/L (14-35); Albumin 3.9 g/dL (3.8-4.9); Alkaline Phosphatase 75 U/L (41-126); BUN/Creat Ratio 23.57 Ratio (12.00-20.00); Blood Urea Nitrogen 16.5 mg/dL (9.0-27.0); Calcium 8.6 mg/dL (8.7-10.3); Carbon Dioxide 22.4 mmol/L (21.6-31.8); Chloride 103 mmol/L (96-109); Globulin 2.3 g/dL (1.6-3.3); Glucose 112 mg/dL (70-110); Magnesium 2.3 mg/dL (1.5-2.4); Potassium 4.5 mmol/L (3.5-5.5); Sodium 136 mmol/L (135-145); Total Bilirubin 0.3 mg/dL (0.3-1.2); Total Protein 6.2 g/dL (6.2-8.2)
[2024-07-31 08:26] VITALS: BP 126/70; PULSE 53; RESP 16; TEMP 97.7
--- NOTE | 2024-07-31 10:06 | P.PN ---
Subjective Progress Note Date: 07/31/24 Principal diagnosis: Left lower extremity weakness/paralysis, urinary incontinence Patient is evaluated today at bedside, he is resting in his hospital bed. Patient's symptoms remain unchanged. I did decrease the IV steroids yesterday. I discussed with nursing to remove Barker today for trial. Denies any headaches, lightheadedness, chest pain, shortness of breath, left upper extremity or right lower extremity symptoms. Objective - Vital Signs Vital signs: Vital Signs Temp 97.7 F 07/31/24 06:56 Pulse 53 L 07/31/24 06:56 Resp 16 07/31/24 06:56 BP 126/70 07/31/24 06:56 Pulse Ox 98 07/31/24 06:56 FiO2 Intake & Output 07/30/24 07/31/24 07/31/24 18:59 06:59 18:59 Intake Total 3540 Output Total 2700 3620 Balance 840 -3620 Intake: Oral 3540 Output: Urine 2700 3620 Other: Voiding Method Indwelling Catheter - Exam Gen: AOx3, NAD VSS stable at this time Integument: No open lesions or sores are visualized throughout the cervical, thoracic or lumbar spine. There is well-healed incision in the lower lumbar spine from previous lumbar surgery Palpation: Tenderness to palpation noted in the paraspinal region of the mid to low thoracic along with lumbar spine ROM: Full range of motion all major muscle groups of the bilateral upper extremities, no focal deficits are appreciated Right lower extremity demonstrates adequate range of motion all major muscle groups Left lower extremity patient does not move it he states he tries any cannot move it at all Sensory Exam: Senory exam to light touch is intact C5-T1 Senosry exam to light touch is intact L2-S1, sensory exam to light touch de monstrates deficits throughout the left lower extremity Motor: 5/5 strength appreciated in bilateral upper extremities with shoulder elevation, shoulder abduction, elbow extension, elbow flexion, wrist extension, wrist flexion, swimming pool cleaner 4/5 strength appreciated in the right lower extremity with hip flexion, knee extension, knee flexion, plantarflexion, dorsiflexion, EHL, FHL With the left lower extremity patient continues to demonstrate no movement with plantarflexion, dorsiflexion, EHL, FHL, knee extension and knee flexion. Well straight leg raising the left lower extremity he is able to contract the quad and hold the leg up for short period of time Reflexes: Negative Jose's bilaterally Negative clonus bilaterally Special Test: Negative straight leg raise right lower extremity Positive straight leg raise left lower extremity - Labs CBC & Chem 7: 07/31/24 03:32 07/31/24 03:32 Labs: Abnormal Lab Results - Last 24 Hours (Table) 07/31/24 07/31/24 Range/Units 03:32 03:32 WBC 10.29 H (4.50-10.00) X 10*3/uL BUN/Creatinine Ratio 23.57 H (12.00-20.00) Ratio Glucose 112 H (70-110) mg/dL Calcium 8.6 L (8.7-10.3) mg/dL AST 12 L (14-35) U/L Assessment and Plan Assessment: Mid thoracic/low back pain Left lower extremity paralysis/paresthesias/weakness Multilevel thoracic mild disc herniations Previous laminectomy/discectomy L5-S1 Urinary incontinence Status post fall from truck Plan: I was again able to discuss the case with my attending surgeon. There is no orthopedic spine surgical intervention we would offer the patient at this time to correlate with his imaging findings and his physical exam findings. Consider transfer to tertiary care facility for further workup and management Continue to decrease steroids Urinary catheter removal and bladder trial today Pain control, continue current medications DVT prophylaxis per primary medical service Other medical specialty recommendations appreciated Please contact our orthopedic service with any further questions regarding this patient Time with Patient: Less than 30
--- NOTE | 2024-07-31 13:51 | P.PN ---
Progress Note - Text Progress Note Date: 07/31/[address] Lane and he felt imaging does not fit his clinical picture. I spoke with primary team N.P. and his nurse and was notified by nurse he would not have any strength on the left lower extremity while in bed but today he walked with therapy without any difficulty. It is felt there is functional component. Recommend continues with physical therapy and follow-up with Orthopedic, neurology team and psychiatry team. Otherwise, no additional neurological work-up. Will sign off. Please reconsult if needed.
[2024-07-31 13:58] VITALS: BMI 33.7
--- NOTE | 2024-07-31 14:45 | P.DS ---
Providers Date of admission: 07/27/24 21:03 Expected date of discharge: 07/31/24 Attending physician: Demario Toure MD Consults: 07/27/24 20:58 Consult Physician Urgent Consulting Provider: Matt Lane Consult Reason/Comments: back pain, left leg weakness Do you want consulting provider notified?: Already Contacted 07/29/24 01:56 Consult Physician Urgent Consulting Provider: Neurology Coverage Consult Reason/Comments: numbness in legs Do you want consulting provider notified?: Yes Primary care physician: Stated None Hospital Course: Discharge Diagnosis: Acute lumbar back pain accompanied by left lower extremity weakness/paralysis and urinary incontinence. Improved. Patient initially with full weakness/paralysis of left lower extremity. He underwent multiple imaging and was evaluated by orthospine surgeon and neurologist. A Barker catheter was placed. Patient was treated with high-dose IV steroids. Orthospine surgeon stating patient did have disc herniations, but no spinal canal stenosis or significant findings on imaging to explain patient's symptoms. Neurology evaluated and states symptoms are likely resulting from underlying functional component. Discussed with patient in detail. On morning of 07/31/2024 patient reported continued full weakness/paralysis of left lower extremity when evaluated by orthopedic PA. Patient was updated that imaging was not showing significant findings to explain patient's symptoms and initially recommended transfer to tertiary care center, however when evaluated by physical therapy patient then able to ambulate with walker without any difficulties. Patient was reported to have a stiff leg when ambulating but was independently functioning. Barker catheter was removed and patient now also urinating without any difficulties from previous reported incontinence. Unclear if the symptoms improved with IV steroid administration or if there was an underlying functional component. Discussed with both neurologist and orthospine surgeon and patient cleared from their perspective for discharge. Patient medically optimized at this time and cleared for discharge. Patient to follow-up outpatient with PCP and orthospine surgeon. Patient discharged home with lidocaine patch and Medrol Dosepak. Multilevel thoracic disc herniations, T5-T6 through T8-T9 C5-C6 right paracentral disc bulge that has mild anterior thecal sac compression at T2-T3 Traumatic fall from [employer] truck Hospital Course: Patient is a 44-year-old male with a past medical history of nicotine dependence and recent fall resulting in severe lower back pain, left lower extremity weakness/paralysis, and urinary incontinence. 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 Patient reports initially was able to get back up and ambulate through the pain, he states he was seen at [facility], [place] at time of injury and underwent a CT scan on his back which was negative. Patient reported this pain progressively worsened accompanied by the development of left lower extremity weakness and lastly urinary incontinence provoking him to return to the emergency department for further evaluation. Upon arrival to our facility, patient underwent evaluation in the emergency department. Vital signs upon arrival show blood pressure 138/76, heart rate 60, respiratory rate 18, temp 98.3 F, and SpO2 of 99% on room air. MRI Lumbar spine completed showing no definitive evidence of disc herniation or significant spinal cord stenosis stating no significant changes since MRI completed 08/19/2022. Patient was started on IV Decadron and admitted under services with consultation to orthospine surgery team. MRI thoracic spine completed showing left paracentral to left lateral anterior thecal sac compression at T5-T6 through T8-T9 with disc bulging and/or osteophyte formation, some cord contact is present at these levels without spinal canal stenosis and mild cord flattening may be present at C5-6 with mild right paracentral disc bulge that has mild anterior thecal sac compression at T2-T3.Patient initially with full weakness/paralysis of left lower extremity. He underwent multiple imaging and was evaluated by orthospine surgeon and neurologist. A Barker catheter was placed. Patient was treated with high-dose IV steroids. Orthospine surgeon stating patient did have disc herniations, but no spinal canal stenosis or significant findings on imaging to explain patient's symptoms. Neurology evaluated and states symptoms are likely resulting from underlying functional component. Discussed with patient in detail. On morning of 07/31/2024 patient reported continued full weakness/paralysis of left lower extremity when evaluated by orthopedic PA. Patient was updated that imaging was not showing significant findings to explain patient's symptoms and initially recommended transfer to tertiary care center, however when evaluated by physical therapy patient then able to ambulate with walker without any difficulties. Patient was reported to have a stiff leg when ambulating but was independently functioning. Barker catheter was removed and patient now also urinating without any difficulties from previous reported incontinence. Unclear if the symptoms improved with IV steroid administration or if there was an underlying functional component. Discussed with both neurologist and orthospine surgeon and patient cleared from their perspective for discharge. Patient medically optimized at this time and cleared for discharge. Patient to follow-up outpatient with PCP and orthospine surgeon. Physical exam: Patient seen and fully evaluated at bedside this morning. He was ambulating with walker back into bed and was able to get into bed independently without any assistance. Vital signs reviewed and stable. General: Nontoxic, no distress and appears stated age. Derm: Skin warm and dry, normal coloration for ethnicity. Head: Atraumatic, normocephalic and symmetric. Eyes: EOM's intact, no lid lag, and anicteric sclera Mouth: no lip lesions, mucus membranes moist Cardiovascular: regular rate and rhythm with normal S1S2, no murmur, positive posterior tibial pulses bilaterally, and cap refill < 2 seconds. Lungs: Respirations even, regular, and unlabored on room air. Lungs CTA bilaterally, no rhonchi, no rales, no wheezing, and no accessory muscle usage. Abdominal: soft, nontender to palpation, no guarding, no appreciable organomegaly Ext: No gross muscle atrophy, no edema, no contractures. Pt was personally seen ambulating with walker back into bed and was able to get into bed independently without any assistance. Neuro: Speech clear, face symmetrical and CN II-XII grossly intact with no noted focal neuro deficits. Psych: Alert and oriented to person, place, time, and situation. Appropriate and pleasant affect. A total of 35 minutes of time were spent preparing this complex discharge summary. Pt was discharged on 07/31/2024 at 12:37 PM Patient was seen independently by Nurse Practitioner. This document was prepared using [employer] dictation software. Please allow for errors in broke beater operator while rare they do occur. Erick Fowler NP rendered care for this patient independently, reviewed the findings and plan as documented in the note above. I did not physically speak with or examine the patient on this date. Patient Condition at Discharge: Stable Plan - Discharge Summary Discharge Rx Participant: No New Discharge Prescriptions: New methylPREDNISolone Dose Pack [Medrol Dose Pack] 4 mg PO DIRECTED #21 tab Lidocaine 5% Patch [Lidoderm 5% Patch] 1 patch TOPICAL DAILY 30 Days #30 patch Continue Ibuprofen [Motrin] 800 mg PO Q8H PRN PRN Reason: Pain HYDROcodone/APAP 5-325MG [[place] 5-325] 1 tab PO Q4HR PRN PRN Reason: Pain Discharge Medication List HYDROcodone/APAP 5-325MG [[place] 5-325] 1 tab PO Q4HR PRN 07/28/24 [History] Ibuprofen [Motrin] 800 mg PO Q8H PRN 07/28/24 [History] Lidocaine 5% Patch [Lidoderm 5% Patch] 1 patch TOPICAL DAILY 30 Days #30 patch 07/31/24 [Rx] methylPREDNISolone Dose Pack [Medrol Dose Pack] 4 mg PO DIRECTED #21 tab 07/31/24 [Rx] Follow up Appointment(s)/Referral(s): Chet Oliva DO [REFERRING] - 1 Week (Please call and schedule first available appointment for outpatient follow-up and management of further care.) Matt Lane DO [Doctor of Osteopathic Medicine] - 1 Week (Office is npot answering at time of discharge. Please call for follow-up appointment.) Patient Instructions/Handouts: Back Pain (ED) Activity/Diet/Wound Care/Special Instructions: Activity: As tolerated. Take breaks as needed. Avoid heavy lifting Diet: Resume regular diet. Special Instructions: Take all of your medications as directed and remember to keep all of your doctor's appointments and follow-up as needed. Thank you for allowing us to participate in your care, it was truly a pleasure having you for our patient!!! Discharge Disposition: HOME SELF-CARE
[2024-07-31] MEDS ORDERED: DEXAMETHASONE SOD PHOSPHATE 4 MG/ML 1 ML VIAL IVP SCH (18:00)
== END 2024-07-31 14:52 | disposition home or self-care (01) | DRG 347 ==
LOC: EC 17:44 → 6NMEDSUR 21:02 → OBSVTOIN 21:03 → 6NMEDSUR 07-28 07:16 → 4SSUR 07-28 15:37
PROVIDERS: ADMIT Student in an Organized Health Care Education/Training Program; ATTEND Student in an Organized Health Care Education/Training Program
DX: M51.24 Other intervertebral disc displacement, thoracic region (principal); N31.9 Neuromuscular dysfunction of bladder, unspecified; N39.498 Other specified urinary incontinence; M50.822 Other cervical disc disorders at C5-C6 level; M51.04 Intervertebral disc disorders with myelopathy, thoracic region; G81.94 Hemiplegia, unspecified affecting left nondominant side; F17.210 Nicotine dependence, cigarettes, uncomplicated; H91.93 Unspecified hearing loss, bilateral; M25.78 Osteophyte, vertebrae; V85.9XXA Unspecified occupant of special construction vehicle injured in nontraffic accident, initial encounter; Z28.310 Unvaccinated for COVID-19; Z28.21 Immunization not carried out because of patient refusal; Z88.0 Allergy status to penicillin
CPT/HCPCS: 70553; 72146; 72148; 72156; 80048; 80053; 83735; 85025; 85027; 96361; 96372; 96374; 96376; 99285